=== PATIENT | female | born 1990 | race Caucasian/White ===

== ENCOUNTER 2020-10-14 17:04 | Inpatient (IN) | payer OTHER ==
[~2020-10-14] VITALS: Ht 165.1 cm; Wt 84.4 kg
[~2020-10-14 17:04] MED LIST: ADVIL200 M1 PO; NORCO 5-325 TA1 EACH PO; OMEPRAZOLE40 MG PO
[2020-10-14 17:51] LABS: BILIRUBIN NEGATIVE (NEGATIVE); BLOOD TRACE-INTACT Ery/uL (NEGATIVE); CLARITY CLEAR (CLEAR); COLOR YELLOW (YELLOW); GLUCOSE (U) NORMAL (NORMAL); LEUKOCYTES NEGATIVE Leu/uL (NEGATIVE); NITRITE NEGATIVE (NEGATIVE); PROTEIN TRACE (LOW) mg/dL (NEGATIVE); SPECIFIC GRAVITY >=1.030 (1.001-1.030); pH 5.5 (5.0-9.0)
[2020-10-14 18:04] LABS: BACTERIA 1+; CALCIUM OXALATE CRYSTALS TRACE; URINARY WBC RARE
[2020-10-14 18:05] LABS: MUCOUS TRACE
[2020-10-14 19:02] LABS: BASOPHIL 0.3 % (0-2); EOSINOPHIL 0.1 % (0-5); HCT 45.8 % (37.0-47.0); HGB 15.3 g/dl (12.5-16.0); LYMPHOCYTE 11.2 % (15-48); MCH 29.8 pg (25.0-31.0); MCHC 33.4 g/dL (32.0-36.0); MCV 89.3 fL (78.0-100.0); MONOCYTE 8.2 % (0-12); MPV 9.9 fL (6.0-9.5); NEUTROPHIL 78.5 % (41-80); NRBC 0; PLT 306 K/uL (150-400); RBC 5.13 M/uL (4.20-5.40); RDW 12.1 % (11.5-14.0); WBC 11.9 K/uL (4.0-10.5)
[2020-10-14 19:20] LABS: BILIRUBIN - TOTAL 0.7 mg/dL (0.2-1.0); BUN/CREAT RATIO (CALC) 10.6 RATIO; CREATININE 0.94 mg/dL (0.51-0.95); POTASSIUM 4.2 mmol/L (3.5-5.1)
[2020-10-15 06:00] LABS: BASOPHIL 0.8 % (0-2); EOSINOPHIL 1.2 % (0-5); HCT 39.9 % (37.0-47.0); HGB 13.4 g/dl (12.5-16.0); LYMPHOCYTE 29.6 % (15-48); MCH 30.3 pg (25.0-31.0); MCHC 33.6 g/dL (32.0-36.0); MCV 90.3 fL (78.0-100.0); MONOCYTE 12.3 % (0-12); NEUTROPHIL 55.7 % (41-80); NRBC 0; PLT 242 K/uL (150-400); RBC 4.42 M/uL (4.20-5.40); RDW 12.2 % (11.5-14.0)
[2020-10-15 06:13] LABS: INR 1.08 (0.9-1.2); PROTHROMBIN TIME 13.4 SECONDS (11.8-13.4); PTT 25.4 SECONDS (24.4-34.7)
[2020-10-15 06:33] LABS: ALBUMIN 3.1 g/dL (3.4-5.0); BILIRUBIN - TOTAL 0.6 mg/dL (0.2-1.0); BUN/CREAT RATIO (CALC) 8.6 RATIO; CREATININE 0.81 mg/dL (0.51-0.95); POTASSIUM 3.8 mmol/L (3.5-5.1); TOTAL PROTEIN 6.1 g/dL (6.4-8.2)
[2020-10-16 06:08] LABS: HBSAG SCREEN Negative (Negative); HEP A AB, IGM Negative (Negative); HEP B CORE AB, IGM Negative (Negative); HEP C VIRUS AB 0.2 (0.0-0.9)
[2020-10-16 06:22] LABS: BASOPHIL 0.6 % (0-2); HCT 40.6 % (37.0-47.0); HGB 13.7 g/dl (12.5-16.0); LYMPHOCYTE 20.5 % (15-48); MCHC 33.7 g/dL (32.0-36.0); MPV 10.3 fL (6.0-9.5); NEUTROPHIL 69.5 % (41-80); NRBC 0; PLT 241 K/uL (150-400); RBC 4.56 M/uL (4.20-5.40); RDW 11.9 % (11.5-14.0); WBC 6.8 K/uL (4.0-10.5)
[2020-10-16 06:56] LABS: BILIRUBIN - TOTAL 0.9 mg/dL (0.2-1.0); BUN/CREAT RATIO (CALC) 8.3 RATIO; CREATININE 0.72 mg/dL (0.51-0.95); GLOBULIN (CALCULATION) 3.3 g/dL; MAGNESIUM 1.8 mg/dL (1.8-2.4); POTASSIUM 3.4 mmol/L (3.5-5.1); TOTAL PROTEIN 6.3 g/dL (6.4-8.2)
[2020-10-16 08:40] LABS: IRON % SATURATION 46.8 %SAT (20-50)
[2020-10-16 09:12] LABS: FOLIC ACID (SERUM) 5.7 ng/mL (8.6-58.9)
[2020-10-17 06:10] LABS: BASOPHIL 0.4 % (0-2); HCT 40.3 % (37.0-47.0); HGB 13.5 g/dl (12.5-16.0); LYMPHOCYTE 18.7 % (15-48); MCH 29.9 pg (25.0-31.0); MCHC 33.5 g/dL (32.0-36.0); MCV 89.4 fL (78.0-100.0); MONOCYTE 7.7 % (0-12); MPV 10.1 fL (6.0-9.5); NEUTROPHIL 71.8 % (41-80); NRBC 0; PLT 255 K/uL (150-400); RBC 4.51 M/uL (4.20-5.40); RDW 11.9 % (11.5-14.0); WBC 6.9 K/uL (4.0-10.5)
[2020-10-17 06:42] LABS: BILIRUBIN - TOTAL 0.3 mg/dL (0.2-1.0); BUN/CREAT RATIO (CALC) 6.2 RATIO; CREATININE 0.65 mg/dL (0.51-0.95); GLOBULIN (CALCULATION) 3.6 g/dL; MAGNESIUM 1.9 mg/dL (1.8-2.4); POTASSIUM 3.7 mmol/L (3.5-5.1); TOTAL PROTEIN 6.6 g/dL (6.4-8.2)
--- NOTE | 2020-10-17 09:54 | NUR ---
10/17/20 Ms. Carney lives at home with her spouse and 2 children. She was independent in the home and community prior to admission. Patient reports the family to be able to meet their financial obligations.
[2020-10-17] MEDS ORDERED: NORCO 5-325 TA1 EACH PO (14:12)
[2020-10-17] MEDS ORDERED: COLESTIPOL HCL1 GM PO (14:12)
[2020-10-17] MEDS ORDERED: ZOFRAN4 M1 PO (14:12)
[2020-10-17] MEDS ORDERED: CARAFATE1 GM PO (14:12)
[2020-10-17] MEDS ORDERED: PANTOPRAZOLE SO40 MG PO (14:12)
== END 2020-10-17 15:35 | disposition home or self-care (01) | DRG 391 ==
LOC: FER 17:04 → FMS 10-15 03:56
PROVIDERS: Emergency Medicine; Internal Medicine; Nurse Practitioner; Student in an Organized Health Care Education/Training Program; ADMIT Internal Medicine
PROC: 0DB68ZX Excision of Stomach, Via Natural or Artificial Opening Endoscopic, Diagnostic (ICD-10-PCS; principal; 2020-10-16 10:00)
PROC: 0DB78ZX Excision of Stomach, Pylorus, Via Natural or Artificial Opening Endoscopic, Diagnostic (ICD-10-PCS; 2020-10-16 10:00)
DX: A08.4 Viral intestinal infection, unspecified (principal); K85.80 Other acute pancreatitis without necrosis or infection; B17.9 Acute viral hepatitis, unspecified; K27.9 Peptic ulcer, site unspecified, unspecified as acute or chronic, without hemorrhage or perforation; K31.7 Polyp of stomach and duodenum; Z20.822 Contact with and (suspected) exposure to COVID-19; K76.0 Fatty (change of) liver, not elsewhere classified; D64.9 Anemia, unspecified; G43.909 Migraine, unspecified, not intractable, without status migrainosus; K83.8 Other specified diseases of biliary tract; K29.60 Other gastritis without bleeding; Z90.49 Acquired absence of other specified parts of digestive tract; Z90.89 Acquired absence of other organs
CPT/HCPCS: 36415; 76705; 80053; 80061; 80074; 81001; 82150; 82607; 82746; 83540; 83550; 83605; 83690; 83735; 84145; 85025; 85610; 85730; 87088; 88305; 94010; C9113; J1170; J1200; J1885; J2250; J2270; J2405; J2550; J2704; J7030; J7120; Q9967; U0002

== ENCOUNTER 2021-02-10 20:34 | Emergency (ER) | payer OTHER ==
[~2021-02-10 20:34] MED LIST changes: +CARAFATE1 GM PO; +COLESTIPOL HCL1 GM PO; +PANTOPRAZOLE SO40 MG PO; +ZOFRAN4 M1 PO
[2021-02-10 21:41] LABS: BASOPHIL 0.4 % (0-2); EOSINOPHIL 4.1 % (0-5); HCT 46.3 % (37.0-47.0); HGB 15.9 g/dl (12.5-16.0); LYMPHOCYTE 29.2 % (15-48); MCH 32.2 pg (25.0-31.0); MCHC 34.3 g/dL (32.0-36.0); MCV 93.7 fL (78.0-100.0); MONOCYTE 10.7 % (0-12); MPV 11.2 fL (6.0-9.5); NEUTROPHIL 55.2 % (41-80); NRBC 0; PLT 182 K/uL (150-400); RBC 4.94 M/uL (4.20-5.40); RDW 13.4 % (11.5-14.0)
[2021-02-10 21:55] LABS: INR 0.98 (0.9-1.2); PROTHROMBIN TIME 12.4 SECONDS (11.8-13.4)
[2021-02-10 22:02] LABS: ALBUMIN 3.6 g/dL (3.4-5.0); BILIRUBIN - TOTAL 0.2 mg/dL (0.2-1.0); CREATININE 0.75 mg/dL (0.51-0.95); GLOBULIN (CALCULATION) 3.6 g/dL; POTASSIUM 3.3 mmol/L (3.5-5.1); TOTAL PROTEIN 7.2 g/dL (6.4-8.2)
[2021-02-10 22:25] LABS: BILIRUBIN NEGATIVE (NEGATIVE); BLOOD 3+ Ery/uL (NEGATIVE); CLARITY CLEAR (CLEAR); COLOR YELLOW (YELLOW); GLUCOSE (U) NORMAL (NORMAL); LEUKOCYTES NEGATIVE Leu/uL (NEGATIVE); NITRITE NEGATIVE (NEGATIVE); PROTEIN NEGATIVE (NEGATIVE); SPECIFIC GRAVITY >=1.030 (1.001-1.030); UROBILINOGEN 0.2 mg/dL (0.2-1.0)
[2021-02-10 22:32] LABS: BACTERIA TRACE; URINARY RBC TNTC; URINARY WBC RARE
[2021-02-11] MEDS ORDERED: ZOFRAN4 M1 PO (00:23)
[2021-02-11] MEDS ORDERED: PHENERGAN25 M1 PO (00:23)
[2021-02-11] MEDS ORDERED: PROTONIX 40MG T40 MG PO (00:55)
== END 2021-02-11 01:15 | disposition home or self-care (01) ==
LOC: FER 20:34
PROVIDERS: Emergency Medicine
DX: U07.1 COVID-19 (principal); R10.11 Right upper quadrant pain; R11.2 Nausea with vomiting, unspecified
CPT/HCPCS: 36415; 71275; 80053; 81001; 83690; 85025; 85610; J1170; J2270; J2405; J7030; Q0169; Q9967; U0002

== ENCOUNTER 2021-03-28 05:15 | Emergency (ER) | payer OTHER ==
[~2021-03-28 05:15] MED LIST changes: +PHENERGAN25 M1 PO; +PROTONIX 40MG T40 MG PO
[2021-03-28 06:03] LABS: BASOPHIL 0.9 % (0-2); EOSINOPHIL 1.2 % (0-5); HCT 41.1 % (37.0-47.0); HGB 13.9 g/dl (12.5-16.0); LYMPHOCYTE 23.8 % (15-48); MCH 29.6 pg (25.0-31.0); MCHC 33.8 g/dL (32.0-36.0); MCV 87.4 fL (78.0-100.0); MPV 10.2 fL (6.0-9.5); NEUTROPHIL 62.8 % (41-80); NRBC 0; PLT 284 K/uL (150-400); RDW 12.3 % (11.5-14.0); WBC 6.8 K/uL (4.0-10.5)
[2021-03-28 06:11] LABS: MONOSPOT (MONONUCLEOSIS) NEGATIVE (NEGATIVE)
[2021-03-28 06:27] LABS: BILIRUBIN NEGATIVE (NEGATIVE); BLOOD TRACE-INTACT Ery/uL (NEGATIVE); CLARITY CLEAR (CLEAR); COLOR YELLOW (YELLOW); GLUCOSE (U) NORMAL (NORMAL); LEUKOCYTES NEGATIVE Leu/uL (NEGATIVE); NITRITE NEGATIVE (NEGATIVE); PROTEIN NEGATIVE (NEGATIVE); UROBILINOGEN 0.2 mg/dL (0.2-1.0)
[2021-03-28 06:32] LABS: BUN/CREAT RATIO (CALC) 12.9 RATIO; CREATININE 0.7 mg/dL (0.51-0.95); POTASSIUM 3.5 mmol/L (3.5-5.1)
[2021-03-28 06:47] LABS: BACTERIA TRACE; URINARY WBC RARE
[2021-03-28 07:02] LABS: CORONAVIRUS 2019 SARS-COV-2 NEGATIVE (NEGATIVE); INFLUENZA A NAA NEGATIVE (NEGATIVE)
[2021-03-28] MEDS ORDERED: ZPAK PO (07:35)
[2021-03-28] MEDS ORDERED: IBUPROFEN800 MG PO (07:35)
[2021-03-28] MEDS ORDERED: BROMFED DM COU473 ML PO (07:35)
[2021-03-28] MEDS ORDERED: VENTOLIN HFA IN18 GM INH (07:59)
== END 2021-03-28 08:00 | disposition home or self-care (01) ==
LOC: FER 05:15
PROVIDERS: Emergency Medicine Emergency Medical Services
DX: J02.9 Acute pharyngitis, unspecified (principal); Z20.822 Contact with and (suspected) exposure to COVID-19; Z86.16 Personal history of COVID-19
CPT/HCPCS: 36415; 71045; 80048; 81001; 85025; 86308; 87880; 93005; 94640; J1100; J1885; J2405; J7030; U0002